=== PATIENT | female | born 1995 | race Caucasian/White ===

== ENCOUNTER 2022-03-03 15:50 | Observation (INO) | payer BC ==
[2022-03-03] MEDS ORDERED: Ondansetron PF 4 MG/2 ML Vial ONE (16:17)
[2022-03-03] MEDS ORDERED: Morphine 4 MG/ML VIAL ONE ×3 (16:18→23:15)
[2022-03-03 16:32] LABS: Bacteria/HPF None Seen HPF (None Seen); Bilirubin Negative (Negative); Blood, Urine Negative (Negative); Clarity Clear (Clear); Glucose, Urine (Dipstick) Normal (Negative); Ketone, Urine 10 mg/dL (Negative); Leukocyte 250 Leu/uL (Negative); Nitrite Negative (Negative); Protein, Urine (Dipstick) Negative (Neg-Trace); RBC/HPF 0-3 HPF (0-3); Specific Gravity, Urine 1.023 (1.002-1.036); Urobilinogen Normal mg/dL (Less than 2); WBC/HPF 0-3 HPF (0-3)
[2022-03-03 17:08] LABS: #Eosinphils 0.1 thou/uL (0.0-0.7); #Monocytes 0.6 thou/uL (0.11-0.59); #Neutrophils 7.2 thou/uL (1.40-6.50); %Basophils 0.3 % (0.0-1.0); %Eosinophils 1.2 % (0.0-10.0); %Monocytes 5.5 % (0.0-10.0); Mean Corpuscular HGB CONC 32.9 g/dL (32.0-36.0); Mean Corpuscular Hemoglobin 30.9 pg (27.0-31.0); Mean Corpuscular Volume 93.8 fl (78.0-98.0); Mean Platelet Volume 8.7 fL (7.4-10.4); Platelet Count 230 10x3/uL (130-400); RBC Distribution Width 11.8 % (11.5-14.5); Red Blood Cell (RBC) Count 4.53 mill/uL (4.20-5.40); White Blood Cell (WBC) Count 9.9 10x3/uL (4.8-10.8)
[2022-03-03 17:13] LABS: BHCG - Serum Negative (NEGATIVE); Pregs Control Background? CLEAR/WHITE (CLR/WHITE); Pregs Control Bar Appear? YES (CONTROL BAR)
[2022-03-03 17:27] LABS: ALT (SGPT) 14 U/L (8-55); AST (SGOT) 17 U/L (5-34); Albumin 4.3 g/dL (3.5-5.0); Alkaline Phosphatase 59 U/L (40-110); Anion Gap 14 mmol/L (10-20); BUN (Urea Nitrogen) 12 mg/dL (7.0-18.7); Bilirubin, Total 1.4 mg/dL (0.2-1.2); Calc. Creatinine Clearance 0 mL/min (70-130); Carbon Dioxide 20 mmol/L (22-29); Chloride 108 mmol/L (98-107); Estimated GFR 86; Globulin 2.8 g/dL (2.4-3.5); Glucose 88 mg/dL (70-105); Potassium 4.1 mmol/L (3.5-5.1); Protein, Total 7.1 g/dL (6.0-8.3); Sodium 138 mmol/L (136-145)
[2022-03-03] MEDS ORDERED: Ketorolac Tromethamine 30 MG/ML VIAL ONE (19:35)
[2022-03-03 23:17] LABS: SARS-CoV-2 NAA Rapid Test Not Detected (NotDetected)
[2022-03-03] MEDS ORDERED: Ondansetron PF 4 MG/2 ML Vial IVP PRN (23:45)
[2022-03-03] MEDS ORDERED: Ondansetron ODT 4 MG TAB SL PRN (23:45)
[2022-03-04] MEDS: Sodium Chloride 0.9% 1,000 ML IV SCH ×2 (00:36→10:00)
[2022-03-04 01:06] VITALS: BMI 32.3
[2022-03-04] MEDS: Morphine 4 MG/ML VIAL SLOW IVP PRN ×2 (02:57→06:45)
[2022-03-04] MEDS ORDERED: Piperacillin/Tazobactam 3.375 GM in Sodium Chloride 0.9% 100 ML IVPB SCH (03:00)
[2022-03-04 08:48] VITALS: TEMP 98.4
[2022-03-04] MEDS ORDERED: Morphine 4 MG/ML VIAL ONE (10:04)
[2022-03-04] MEDS ORDERED: fentaNYL PF 100 MCG/2 ML SYRINGE ONE (10:27)
[2022-03-04] MEDS ORDERED: Scopolamine 1.5 mg/72 hour Patch ONE (10:27)
[2022-03-04] MEDS ORDERED: HYDROmorphone 0.5 MG/0.5 ML SYRINGE ONE (10:27)
[2022-03-04] MEDS ORDERED: Midazolam HCl 2 mg/2 ml Vial ONE (10:27)
[2022-03-04] MEDS ORDERED: Ketorolac Tromethamine 30 MG/ML VIAL ONE (10:28)
[2022-03-04] MEDS ORDERED: Sodium Chloride 0.9% 100 ML ONE (10:28)
[2022-03-04] MEDS ORDERED: Piperacillin/Tazobactam 3.375 GM VIAL ONE (10:28)
[2022-03-04] MEDS ORDERED: Bupivacaine HCl 0.5%/Epinephrine 1:200,000/PF 30 ml Vial ONE (10:30)
[2022-03-04] MEDS ORDERED: Lidocaine 2% 6 ML SYR ONE (10:34)
[2022-03-04] MEDS ORDERED: GLYCOPYRROLATE/PF 0.2 MG/ML VIAL ONE (10:49)
[2022-03-04] MEDS ORDERED: NEOSTIGMINE 3 MG/3 ML SYR 3 MG/3 ML SYRINGE ONE (10:49)
[2022-03-04] MEDS ORDERED: traMADol HCl 50 MG TAB PO PRN (10:49)
[2022-03-04] MEDS ORDERED: Rocuronium Bromide 10 MG/ML (10ML VIAL) ONE (10:49)
[2022-03-04] MEDS ORDERED: Ibuprofen 600 MG TAB PO PRN (10:49)
[2022-03-04] MEDS ORDERED: Ondansetron PF 4 MG/2 ML Vial ONE ×2 (10:49→12:02)
[2022-03-04] MEDS ORDERED: Succinylcholine 200 MG/10 ml SYRINGE FS ONE (10:49)
[2022-03-04] MEDS ORDERED: PROPOFOL 200 MG/20 ML VIAL ONE (10:49)
[2022-03-04] MEDS ORDERED: Acetaminophen 500 MG TAB PO PRN (10:49)
[2022-03-04] MEDS ORDERED: Dexamethasone 20 MG/5 ML VIAL ONE (10:49)
[2022-03-04] MEDS ORDERED: Acetaminophen 500 MG TAB PO SCH (11:00)
[2022-03-04] MEDS ORDERED: Promethazine HCl 25 MG/ML VIAL IVPB PRN (11:04)
[2022-03-04] MEDS ORDERED: HYDROmorphone 2 MG/ML VIAL SLOW IVP PRN (11:04)
[2022-03-04] MEDS ORDERED: Ondansetron HCl/PF 4 MG/2 ML Vial IVP PRN (11:04)
[2022-03-04] MEDS ORDERED: Promethazine HCl 25 MG/ML VIAL IM PRN (11:04)
[2022-03-04] MEDS ORDERED: Promethazine HCl 25 MG/ML VIAL ONE (12:27)
[2022-03-04 15:48] VITALS: BP 111/60
[2022-03-05] MEDS ORDERED: Spironolactone 25 MG TAB PO SCH (08:00)
[2022-03-05] MEDS ORDERED: NORGESTIMATE ETHINYL ESTRADIOL PO SCH (09:00)
[2022-03-05] MEDS ORDERED: Prenatal Vitamin 1 TAB PO SCH (09:00)
[2022-03-07] MEDS ORDERED: FLU VACC QS2022-23(6MOS UP)/PF 60 MCG/0.5 ML SYRINGE IM ONE (09:00)
[2022-03-07] MEDS ORDERED: FLUCONAZOLE 150 MG PO SCH (09:00)
== END 2022-03-04 16:35 | disposition home or self-care (01) ==
LOC: ERS 15:50 → SURG A 22:16
PROVIDERS: ADMIT Specialist; ATTEND Specialist
PROC: 0DTJ4ZZ Resection of Appendix, Percutaneous Endoscopic Approach (ICD-10-PCS; principal; 2022-03-04)
PROC: 0UB04ZZ Excision of Right Ovary, Percutaneous Endoscopic Approach (ICD-10-PCS; 2022-03-04)
DX: N83.201 Unspecified ovarian cyst, right side (principal); Z79.3 Long term (current) use of hormonal contraceptives; Z79.899 Other long term (current) drug therapy; Z20.822 Contact with and (suspected) exposure to COVID-19
CPT/HCPCS: 36415; 74176; 76856; 80053; 81003; 81015; 84443; 84703; 85025; 88304; 96365; 96375; 96376; A4649; C1713; G0378; J1100; J1170; J1885; J2250; J2270; J2405; J2543; J2550; J2704; J3490; J7050; U0002